=== PATIENT | female | born 1985 | race Caucasian/White ===

== ENCOUNTER → 2020-04-11 | Outpatient (CLI) | payer SELFPAY | LOC: M LABSMTC 16:27 | PROVIDERS: ATTEND Pediatrics | DX: Z11.59 Encounter for screening for other viral diseases (principal) ==

== ENCOUNTER 2020-07-04 07:53 | Day surgery (SDC) | payer OTHER ==
[~2020-07-04] VITALS: Ht 162.6 cm; Wt 78.9 kg
[~2020-07-04 07:53] MED LIST: BUSP30TA PO; CELE50CA PO; OMEP40CA97 PO; ZONI100C17 PO; xyzal
[2020-07-04 08:37] LABS: URINE PREG TEST NEGATIVE (NEGATIVE)
[2020-07-04 08:41] LABS: APPEARANCE, URINE CLOUDY (CLEAR); BACTERIA, URINE AUTO 1+ (NEGATIVE); BILIRUBIN, URINE AUTO NEGATIVE (NEGATIVE); BLOOD, URINE BLOOD NEGATIVE (NEGATIVE); COLOR, URINE AMBER (YELLOW); GLUCOSE, URINE (UA) AUTO NEGATIVE (NEGATIVE); KETONE, URINE AUTO NEGATIVE (NEGATIVE); LEUKOCYTE ESTERASE, URINE AUTO 3+ (NEGATIVE); MUCUS, URINE LARGE (NEGATIVE); NITRITE, URINE AUTO NEGATIVE (NEGATIVE); PROTEIN, URINE AUTO 1+ mg/dL (NEGATIVE); RBC, URINE AUTO 5 /HPF (0-3); SPECIFIC GRAVITY URINE AUTO 1.024 (1.002-1.035); SQUAMOUS EPITHELIAL CELL UR AU 5 /HPF (0-6); WBC, URINE AUTO 40 /HPF (0-3)
[2020-07-04 09:03] LABS: HEMATOCRIT 42.1 % (36.0-47.0); HEMOGLOBIN 13.9 g/dl (12.0-15.5); MEAN CORPUSCULAR HEMOGLOBIN 31.4 pg (27.0-33.0); MEAN CORPUSCULAR VOLUME 95.2 fl (80.0-96.0); PLATELET COUNT, AUTOMATED 257 10^3/uL (150-450); RED BLOOD COUNT 4.42 10^6/uL (4.00-5.40); WHITE BLOOD COUNT 7.1 10^3/uL (4.0-10.0)
[2020-07-04] MEDS ORDERED: SUGAMMADEX SODIUM 500 MG/5 ML VIAL (BRIDION) As Ordered ONE (09:38)
[2020-07-04] MEDS ORDERED: LIDOCAINE 2% 100MG/5ML SDV (FOR ANES.) As Ordered ONE (09:38)
[2020-07-04] MEDS ORDERED: fentaNYL 100 MCG/2 ML INJECTION (J3010) As Ordered ONE (09:38)
[2020-07-04] MEDS ORDERED: dexameTHASONE 4 MG/ML 1ML VIAL (J1100 PER 1MG) As Ordered ONE (09:38)
[2020-07-04] MEDS ORDERED: MIDAZOLAM INJ 2MG/2ML VIAL (J2250 PER 1MG) As Ordered ONE (09:38)
[2020-07-04] MEDS ORDERED: propofoL 200 MG/20 ML VIAL As Ordered ONE (09:38)
[2020-07-04] MEDS ORDERED: KETOROLAC 60MG 2ML VIAL As Ordered ONE (09:38)
[2020-07-04] MEDS ORDERED: ONDANSETRON 4MG/2ML VIAL As Ordered ONE (09:38)
[2020-07-04] MEDS ORDERED: ROCURONIUM BROMIDE 50 MG/5 ML VIAL As Ordered ONE (09:38)
[2020-07-04] MEDS ORDERED: BUPIVACAINE HCL 0.5% 30 ML VIAL As Ordered ONE (09:58)
[2020-07-04] MEDS ORDERED: SCOPOLAMINE 1MG TRANSDERMAL PATCH As Ordered ONE (10:22)
[2020-07-04] MEDS ORDERED: SILVER NITRATE APPLICATOR As Ordered ONE (11:12)
[2020-07-04] MEDS ORDERED: LR 1,000 ML IV SCH (11:55)
[2020-07-04] MEDS ORDERED: ONDANSETRON 4MG/2ML VIAL IV PRN (11:55)
[2020-07-04] MEDS ORDERED: fentaNYL 100 MCG/2 ML INJECTION (J3010) IV PRN (11:55)
[2020-07-04] MEDS: oxyCODONE 5MG TAB PO PRN ×2 (11:59→12:38)
[2020-07-04 13:20] VITALS: BP 120/81
== END 2020-07-04 13:35 | disposition home or self-care (01) ==
LOC: M SDC 07:53
DX: Z30.2 Encounter for sterilization (principal); K66.0 Peritoneal adhesions (postprocedural) (postinfection); F41.9 Anxiety disorder, unspecified; F17.290 Nicotine dependence, other tobacco product, uncomplicated; J45.909 Unspecified asthma, uncomplicated; Z79.899 Other long term (current) drug therapy
CPT/HCPCS: 36415; 58661; 81001; 81025; 84703; 85027; 86850; 86900; 86901; 88302; J1100; J1885; J2250; J2405; J3010

== ENCOUNTER 2021-08-27 13:35 | Emergency (ER) | payer OTHER ==
[~2021-08-27] VITALS: Ht 162.6 cm; Wt 77.3 kg
[~2021-08-27 13:35] MED LIST changes: +OMEP40CA4 PO; -OMEP40CA97 PO
[2021-08-27 13:36] VITALS: BP 126/61
[2021-08-27] MEDS ORDERED: KETOROLAC 30 MG/ML 1ML VIAL IM ONE (15:50)
[2021-08-27] MEDS ORDERED: methocarbamoL 500 MG TAB PO ONE (15:50)
[2021-08-27] MEDS ORDERED: LIDOCAINE 5% (LIDODERM) PATCH TD ONE (15:50)
[2021-08-27] MEDS ORDERED: METH-1164 PO (16:40)
[2021-08-27] MEDS ORDERED: **NOTE PATIENT COMMENT** MISC XX SCH (21:00)
== END 2021-08-27 16:52 | disposition home or self-care (01) ==
LOC: M ED 13:35
DX: S46.011A Strain of muscle(s) and tendon(s) of the rotator cuff of right shoulder, initial encounter (principal); S46.111A Strain of muscle, fascia and tendon of long head of biceps, right arm, initial encounter; M75.21 Bicipital tendinitis, right shoulder; M25.511 Pain in right shoulder; X58.XXXA Exposure to other specified factors, initial encounter; Y92.099 Unspecified place in other non-institutional residence as the place of occurrence of the external cause; Y93.9 Activity, unspecified; Y99.9 Unspecified external cause status; R51.9 Headache, unspecified; F41.9 Anxiety disorder, unspecified; J45.909 Unspecified asthma, uncomplicated; Z79.899 Other long term (current) drug therapy
CPT/HCPCS: 73030; 96372; 99283; J1885